=== PATIENT | female | born 1960 | race Hispanic/Latino ===

== ENCOUNTER 2019-01-08 08:51 | Emergency (ER) | payer OTHER ==
[2019-01-08 09:22] LABS: Clarity Clear (Clear)
[2019-01-08 09:23] LABS: Bilirubin Negative (Negative); Blood, Urine Negative (Negative); Glucose, Urine (Dipstick) Negative (Negative); Leukocyte Negative (Negative); Nitrite Negative (Negative); Protein, Urine (Dipstick) Negative (Neg-Trace); Urobilinogen 0.2 mg/dL (0.2-1.0)
== END 2019-01-08 10:01 | disposition home or self-care (01) ==
LOC: BURERS 08:51
DX: R53.1 Weakness (principal); K21.9 Gastro-esophageal reflux disease without esophagitis; E11.9 Type 2 diabetes mellitus without complications; E03.9 Hypothyroidism, unspecified; E78.5 Hyperlipidemia, unspecified; I10 Essential (primary) hypertension; F32.9 Major depressive disorder, single episode, unspecified
CPT/HCPCS: 81003; 87804; 99284

== ENCOUNTER 2019-07-13 12:11 | Emergency (ER) | payer OTHER | END 2019-07-13 12:48 | disposition home or self-care (01) | LOC: BURERS 12:11 | DX: F41.1 Generalized anxiety disorder (principal); I10 Essential (primary) hypertension; K21.9 Gastro-esophageal reflux disease without esophagitis; E78.5 Hyperlipidemia, unspecified; E66.9 Obesity, unspecified; M19.90 Unspecified osteoarthritis, unspecified site; E03.9 Hypothyroidism, unspecified; E78.00 Pure hypercholesterolemia, unspecified; F32.9 Major depressive disorder, single episode, unspecified; Z63.79 Other stressful life events affecting family and household | CPT/HCPCS: 99284 ==

== ENCOUNTER 2019-10-21 08:19 | Emergency (ER) | payer OTHER ==
[2019-10-21] MEDS ORDERED: Adacel (T-DAP) 0.5 ML SYRINGE ONE (08:55)
--- NOTE | 2019-10-21 11:37 | RAD ---
LEFT KNEE FOUR VIEWS: 10/21/2019 COMPARISON: Films of the right knee. FINDINGS: Mild degenerative changes are seen in the medial compartment, consisting of joint space narrowing and small osteophytes. Some patellofemoral osteophytes are noted. No fracture or joint effusion is evide nt. IMPRESSION: Mild degenerative change. POS: HOME
--- NOTE | 2019-10-21 11:38 | RAD ---
RIGHT WRIST THREE VIEWS: 10/21/2019 FINDINGS: No fracture is appreciated. The carpal relationships are normal. There are a few small cystic changes in the scaphoid that are longstanding. Their significance is unknown. The intercarpal joints appear normal. The distal radius and ulna appear normal. IMPRESSION: No acute findings. POS: HOME
--- NOTE | 2019-10-21 11:39 | RAD ---
RIGHT KNEE 4 VIEWS: DATE: 10/21/2019. FINDINGS: No fracture was seen. There are moderate degenerative changes consistent with medial joint space parris rowing and osteophytes. Patellofemoral joint also has arthritic change. Any joint diffusion present is small. IMPRESSION: No fracture seen. Moderate degenerative changes, particularly the medial compartment. POS: HOME
== END 2019-10-21 10:30 | disposition home or self-care (01) ==
LOC: BURERS 08:19
DX: S63.501A Unspecified sprain of right wrist, initial encounter (principal); S80.02XA Contusion of left knee, initial encounter; S80.01XA Contusion of right knee, initial encounter; E66.9 Obesity, unspecified; M19.90 Unspecified osteoarthritis, unspecified site; E11.9 Type 2 diabetes mellitus without complications; E03.9 Hypothyroidism, unspecified; E78.5 Hyperlipidemia, unspecified; I10 Essential (primary) hypertension; M79.7 Fibromyalgia; K21.9 Gastro-esophageal reflux disease without esophagitis; E78.00 Pure hypercholesterolemia, unspecified; F32.9 Major depressive disorder, single episode, unspecified; W18.30XA Fall on same level, unspecified, initial encounter
CPT/HCPCS: 90471; 90715

== ENCOUNTER 2019-11-12 08:37 | Emergency (ER) | payer OTHER ==
--- NOTE | 2019-11-12 10:35 | RAD ---
CHEST TWO VIEWS: 11/12/2019 COMPARISON: 09/30/2014 FINDINGS: The heart is normal in size. There is no major lobar infiltrate or effusion. On the lateral view, anand e of the retrocardiac markings seem a little more prominent than they were before. The possibility of a very early infiltrate or bronchial thickening is not excluded. The lungs are otherwise unremarkabl e. The trachea is midline. IMPRESSION: Subtle increase in retrocardiac markings, which may or may not be significant. POS: HOME
== END 2019-11-12 09:26 | disposition home or self-care (01) ==
LOC: BURERS 08:37
DX: J18.9 Pneumonia, unspecified organism (principal); M79.7 Fibromyalgia; K21.9 Gastro-esophageal reflux disease without esophagitis; E66.9 Obesity, unspecified; M19.90 Unspecified osteoarthritis, unspecified site; E11.9 Type 2 diabetes mellitus without complications; E03.9 Hypothyroidism, unspecified; E78.5 Hyperlipidemia, unspecified; I10 Essential (primary) hypertension; E78.00 Pure hypercholesterolemia, unspecified; F32.9 Major depressive disorder, single episode, unspecified; Z79.84 Long term (current) use of oral hypoglycemic drugs; Z79.899 Other long term (current) drug therapy
CPT/HCPCS: 71046